=== PATIENT | male | born 1975 | race Caucasian/White ===

== ENCOUNTER 2017-03-09 08:35 | Inpatient (IN) ==
--- NOTE | 2017-03-09 08:52 | EKG Report ---
Stationary ECG Study [facility] ER Test Date: 03/09/2017 8:46:18 AM Pat Name: ANDERSON BRICENO Department: Room: Gender: M [employer]: : 1975 Requested by: Jason Meehan Order Number: [id number] Reading MD: JAVIER ANTON Intervals [place] Rate: 98 P: 48 W[place]: 154 QRS: 44 QRSD: 101 T: 79 QT: 304 QTc: 359 Interpretive Statements SINUS RHYTHM NONSPECIFIC T WAVE ABNORMALITY SHORT QT INTERVAL CRITERIA FOR LVH Electronically Signed On 03-11-17 17:38:59 CDT by JAVIER ANTON [email or web address]
[2017-03-09] MEDS ORDERED: SODIUM CHLORIDE 0.9% 1,000 ML IV STA (10:45)
[2017-03-09] MEDS ORDERED: MORPHINE 2 MG/1 ML SYRINGE IV STA (10:46)
[2017-03-09] MEDS ORDERED: ONDANSETRON 4 MG/2 ML VIAL IV STA ×2 (10:46→12:39)
--- NOTE | 2017-03-09 10:53 | Emergency Department Note ---
Arrival - Arrival Chief Complaint: Abdominal / Flank Pain Stated Complaint: chest pain,SOB,pancreatitis ED Nursing Triage Note: C/o sharp, epigastric pain radiating to chest and back and N/V-onset 0100 this morning. Patient states he has a hx of pancreatitis and symptoms feel similar. Reports that he is a recovering alcoholic, but started drinking again this week. Mode of Arrival: Ambulatory Limitations: No Limitations Source: Patient, Significant other, Old Records Reviewed, RN Notes Reviewed Time Seen by Provider: 03/09/17 10:22 - History of Present Illness HPI Narrative: 42-year-old white male received to ED with chief complaint of epigastric pain since 1 AM this morning, pain radiates to chest and back. Also complaining of some shortness of breath due to pain. Has a history of pancreatitis, last episode was June 2016. Patient recently started drinking for about a 3 day episode. He is a recovering alcoholic. He says this pain is similar to previous pancreatitis, except that it is worse. No PCP. Chronic medical problems as listed in chart. Patient does have a history of hypertension which is currently untreated. Blood pressure today is 186/114. O2 sat is 98% currently on room air. Allergies/Adverse Reactions: Allergies Allergy/AdvReac Type Severity Reaction Status Date / Time No Known Allergies Allergy Verified 03/21/16 21:38 Home Medications: Home Medications Medication Instructions Recorded Confirmed Type Ascorbic Acid [Vitamin C] 1,000 mg PO DAILY 03/09/17 03/09/17 History Cyanocobalamin (Vitamin B-12) 2,500 mcg PO DAILY 03/09/17 03/09/17 History [Vitamin B12] Glucosamine 500 mg PO DAILY 03/09/17 03/09/17 History Naproxen [Naprosyn] 250 mg PO DAILY 03/09/17 03/09/17 History Review of System - Review of System 12 point system: reviewed and no additional remarkable complaints except as stated - Review of System Constitutional: Absent: fever Respiratory: Present: as per HPI Gastrointestinal: Present: abdominal pain, nausea, vomiting. Absent: hematemesis, melena, hematochezia Medical,Surgical,& Family Hx - Medical History Cardio: History of: Hypertension No history of: CAD Psychological: History of: Anxiety Disorders, Depression HEENT: History of: Eye Problem (wears glasses) Endocrine: No history of: Diabetes Mellitus (NIDDM), Dyslipidemia, Thyroid Disorder Rheumatology: History of;: Gout Gastrointestinal: History of: GERD, Pancreatitis, GI Problems (peptic ulcer disease) Hematology: No history of: Blood Transfusion Reaction - Surgical History HEENT Surgeries: Surgical HX of: Tonsilectomy & Adenoidectomy Patient denies: Eye Surgery Abdominal Surgeries: Surgical HX of: Abdominal Surgery (removal of pancreatic cyst 10 years ago), Hernia Repair (from abdominal incision) Reproductive Surgeries: Patient denies;: Genitourinary Surgery - Family History Family History: Reports;: Family Heart Disease (father, greater than age 55), Family Hypertension Denies;: Family Stroke - Social History Smoking Status: Current every day smoker Frequency of Alcohol Use: Occasionally Type of Drug Use: None Exam Physical Examination: - General General appearance: alert, in no apparent distress - Head Head exam: Present: atraumatic, normocephalic, normal inspection - Eye Eye exam: Present: normal appearance, PERRL, EOMI - Neck Neck exam: Present: normal inspection, full ROM - Chest Chest inspection: Present: normal inspection, symmetric chest wall rise - Respiratory Respiratory exam: Present: normal lung sounds bilaterally - Cardiovascular Cardiovascular exam: Present: regular rate, normal rhythm, normal heart sounds - Abdominal Exam Abdominal exam: Present: soft, tenderness (bilateral upper quadrant, moderate to severe), guarding present. Normal bowel sounds. Absent: distention, organomegaly, trauma, psoas sign, heel tap sign, Guevara's sign, mass - Rectal Exam Rectal exam: Present: deferred - Extremities Exam Extremities exam: Present: normal inspection, full ROM. Absent: pedal edema, joint swelling, calf tenderness - Back Exam Back exam: Present: normal inspection, full ROM - Neurological Exam Neurological exam: Present: alert, oriented X3, normal gait - Psychiatric Psychiatric exam: Present: normal affect, normal mood - Skin Skin exam: Present: warm, dry, intact Vital Signs: Vital Signs Temperature 99 F 03/09/17 23:46 Pulse Rate 108 H 03/09/17 23:46 Respiratory Rate 21 03/09/17 23:46 Blood Pressure 166/105 03/09/17 23:46 O2 Sat by Pulse Oximetry 100 03/09/17 23:46 Course - Reevaluation(s) Time: 12:15 (continues to c/o pain and nausea, will medicate again) - Consultations Time: 12:40 (notified Barrie in Hospitalist Service of pt presence and status.) Results - Labs CBC & BMP: 03/09/17 10:20 03/09/17 10:25 Lab Results: I have reviewed the patients labs Labs: Laboratory Tests 03/09/17 03/09/17 10:25 11:27 Urine Color Yellow Urine Appearance Clear Urine pH 7.0 Ur Specific [place] 1.028 Urine Protein 100 Urine Glucose (UA) >=500 Urine Ketones 80 Urine Blood Negative Urine Nitrate Negative Urine Bilirubin Negative Urine Urobilinogen 4.0 H Urine Leukocytes Negative Urine RBC 5 Urine WBC 1 Ur Squamous Epith Cells Occasional Urine Mucus Occasional Ur Culture Indicated? Not indicated Urine Opiates Screen Negative Ur Barbiturates Screen Negative Ur Phencyclidine Scrn Negative U Amphetamine/Methamph Negative U Benzodiazepines Scrn Positive H U Cocaine Metab Screen Negative U Cannabinoids Screen Negative Laboratory Tests 03/09/17 10:25 Total Bilirubin 1.40 H AST 80 H ALT 72 H Laboratory Tests 03/09/17 10:25 Amylase 93 Lipase 976.0 H Disposition Clinical Impression: Pancreatitis Disposition: Still a Patient Condition: Stable
[2017-03-09] MEDS ORDERED: ONDANSETRON 4 MG/2 ML VIAL ONE ×2 (11:00→12:35)
[2017-03-09] MEDS ORDERED: MORPHINE 2 MG/1 ML SYRINGE ONE (11:00)
[2017-03-09 11:12] LABS: Apearance,Urine CLEAR (Clear); Bilirubin,Urine Negative (Negative); Blood, Urine Negative (Negative); Glucose,Urine (UA) >=500 mg/dL (Negative); Ketones,Urine 80 mg/dL (Negative); Mucus,Urine Occasional /LPF (Occasional); Nitrite,Urine Negative (Negative); Protein,Urine 100 MG/DL; RBC,Urine 5 /HPF (0-4); Squamous Epithelial Cell,Urine Occasional /HPF (0-10); Urine Color Yellow (Yellow); Urine Specific Gravity 1.028 (1.001-1.035); WBC,Urine 1 /HPF (0-6)
[2017-03-09] MEDS ORDERED: PROMETHAZINE 25 MG/1 ML VIAL IM STA (11:30)
[2017-03-09] MEDS ORDERED: PROMETHAZINE 25 MG/1 ML VIAL ONE (11:32)
[2017-03-09 11:37] LABS: Barbiturates Screen,Urine Negative (Negative); Benzodiazepines Screen,Urine Positive (Negative); Cannabinoid Screen,Urine Negative (Negative); Opiate Screen,Urine Negative (Negative); Phencyclidine Screen,Urine Negative (Negative)
[2017-03-09 11:38] LABS: Albumin 4.3 G/DL (3.4-5.0); Bilirubin,Total 1.4 MG/DL (0.2-1.0); Calcium 9.3 MG/DL (8.5-10.1); Osmolality,Calculated 261.2 MOS/KG (273-304); Potassium 4.3 MMOL/L (3.5-5.1); Total Protein 8.5 G/DL (6.4-8.3)
[2017-03-09 11:57] LABS: Basophils % 0.2 % (0.0-0.8); Eosinophils % 0.2 % (0.00-10.9); Hematocrit 41.5 VOL% (42.0-52.0); Hemoglobin 15.1 GM/DL (14.0-18.0); Immature Granulocytes % 0.7 %; Immature Granulocytes Absolute 0.12 #; Lymphocytes % 5.8 % (21.2-54.2); Mean Corpuscular HGB Conc 36.4 GM/DL (32-36); Mean Corpuscular Hemoglobin 33 PG (27-34); Mean Corpuscular Volume 91.6 FL (87-102); Mean Platelet Volume 10.1 FL (9.6-12.0); Monocytes # 1.3 10*3/uL (0.11-0.8); Monocytes % 7.6 % (1.7-12.7); Neutrophils # 14.1 10*3/uL (1.4-7.4); Neutrophils % 85.5 % (38.7-73.9); Platelet Count 152 T/CUMM (130-400); Red Blood Count 4.53 MC/CUMM (3.8-5.5); Red Cell Distribution Width 12.2 % (9.3-17.3); White Blood Count 16.5 T/CUMM (4-12)
[2017-03-09] MEDS ORDERED: HYDROmorphone 2 MG/1 ML VIAL ONE (12:34)
[2017-03-09] MEDS ORDERED: HYDROmorphone 2 MG/1 ML VIAL IV STA (12:39)
[2017-03-09] MEDS ORDERED: DOCUSATE SODIUM 100 MG CAPSULE PO PRN (14:41)
[2017-03-09] MEDS ORDERED: LACTULOSE 20 GM/30 ML UDCUP PO PRN (14:41)
[2017-03-09] MEDS ORDERED: MORPHINE 2 MG/1 ML SYRINGE IV PRN (14:41)
--- NOTE | 2017-03-09 14:44 | Hospitalist History & Physical ---
<Barrie Pfeiffer - Last Filed: 03/09/17 14:38> Assessment and Plan - Time spent with patient Time spent with patient: Greater than 30 minutes (1) Acute pancreatitis Status: Acute Assessment and plan: WBC 16.5, Glu 269, Lipase 976. Patient is NPO. IVF initiated. Will obtain abdominal CT. Monitor pancreatic enzymes. Watch for alcohol withdrawal symptoms in this patient. Current Visit: No (2) Diabetes Status: Acute Assessment and plan: Uncontrolled. Initial SSI protocol. Accu-Cheks ACHS. Current Visit: No (3) Hypertension Status: Chronic Current Visit: No History of Present Illness Chief complaint: Generalized abdominal pain History of present illness: Mr. Baxter is a 42 year old male with a past medical history significant for hypertension, diabetes mellitus, pancreatitis who presents to the ED with complaints of generalized abdominal pain since 1AM this morning. The patient states that he has been under stress lately and relapsed with his alcohol. He states that he drank about 10 beers each night on Sunday, Sunday and Sunday. This morning he reports that it "hurts to breathe" and he has had N/ V. He has previously been admitted with similar symptoms and was treated for alcoholic panceatitis. The patient describes today's symptoms as the same, only worse. On exam, he is diaphoretic and complains of LUQ and epigastric pain which he rates as a 8/10. He reports the pain has gotten better since receiving dilaudid in the ED. He denies headache, blurry vision, chest pain, palpitations , numbness or tingling. Preliminary labs show WBC 16.5, Na 127, Glu 269, AST 80 , ALT 72, Amylase 93, Lipase 976. He will be admitted to the hospital medicine service for further evaluation and treatment. The patient is a full code. This case has been discussed with Dr. Riley. Home Medications Medication Instructions Recorded Confirmed Type Ascorbic Acid [Vitamin C] 1,000 mg PO DAILY 03/09/17 03/09/17 History Cyanocobalamin (Vitamin B-12) 2,500 mcg PO DAILY 03/09/17 03/09/17 History [Vitamin B12] Glucosamine 500 mg PO DAILY 03/09/17 03/09/17 History Naproxen [Naprosyn] 250 mg PO DAILY 03/09/17 03/09/17 History Allergies Allergy/AdvReac Type Severity Reaction Status Date / Time No Known Allergies Allergy Verified 03/21/16 21:38 Medical,Surgical,& Family Hx - Medical History Cardio: History of: Hypertension No history of: CAD Psychological: History of: Anxiety Disorders, Depression HEENT: History of: Eye Problem (wears glasses) Endocrine: No history of: Diabetes Mellitus (NIDDM), Dyslipidemia, Thyroid Disorder Rheumatology: History of;: Gout Gastrointestinal: History of: GERD, Pancreatitis, GI Problems (peptic ulcer disease) Hematology: No history of: Blood Transfusion Reaction - Surgical History HEENT Surgeries: Surgical HX of: Tonsilectomy & Adenoidectomy Patient denies: Eye Surgery Abdominal Surgeries: Surgical HX of: Abdominal Surgery (removal of pancreatic cyst 10 years ago), Hernia Repair (from abdominal incision) Reproductive Surgeries: Patient denies;: Genitourinary Surgery - Family History Family History: Reports;: Family Heart Disease (father, greater than age 55), Family Hypertension Denies;: Family Stroke - Social History Smoking Status: Current every day smoker Frequency of Alcohol Use: Occasionally Type of Drug Use: None Marital Status: Single Lives With:: Alone Functional capacity: independent ambulation - Constitutional Constitutional: Absent: fever(s), headache(s), weakness - EENT Eyes: Absent: blurry vision, loss of vision Ears: Absent: decreased hearing, ear pain Nose, mouth and throat: Absent: epistaxis, headache(s), neck mass, sore throat - Cardiovascular Cardiovascular: Present: dyspnea. Absent: chest pain at rest, edema, radiating jaw, neck or arm pain, palpitations - Respiratory Respiratory: Present: dyspnea. Absent: cough, dyspnea on exertion, wheezing - Gastrointestinal Gastrointestinal: Present: abdominal pain, nausea, vomiting. Absent: constipation, diarrhea - Genitourinary Genitourinary: Absent: difficulty urinating, dysuria - Musculoskeletal Musculoskeletal: Present: back pain. Absent: arthralgias - Neurological Neurological: Absent: abnormal gait, abnormal speech, dizziness, numbness, syncope - Psychiatric Psychiatric: Absent: anxiety, depression - Endocrine Endocrine: Absent: cold intolerance, heat intolerance - Hematologic/Lymphatic Hematologic/Lymphatic: Absent: easy bleeding, easy bruising Exam - Constitutional Exam: General appearance: normal weight, no acute distress - Head Head exam: Present: normocephalic, atraumatic - Eye Eye exam: Present: EOMI. Absent: conjunctival injection, nystagmus Pupils: Present: LAURA, normal accommodation - ENT ENT exam: Present: normal exam, normal external ear exam - Neck Neck exam: Present: normal inspection. Absent: lymphadenopathy, tenderness, thyromegaly - Respiratory Respiratory exam: Present: clear to auscultation bilaterally. Absent: rales, rhonchi, wheezes - Cardiovascular Cardiovascular exam: Present: regular rate and rhythm. Absent: carotid bruit, gallop, rubs - GI/Abdominal GI/Abdominal exam: Present: normal bowel sounds, tenderness to palpation in LUQ and epigastric region. Absent: ascites, distended, mass - Extremities Exam Extremities exam: Present: normal inspection, normal capillary refill. Absent: edema - Back Exam Back exam: Absent: CVA tenderness (L), CVA tenderness (R) - Neurological Exam Neurological exam: Present: alert, oriented X3 - Psychiatric Psychiatric exam: Present: normal affect, normal mood - Skin Skin exam: Present: normal color, warm, dry Results - Labs CBC & BMP: 03/09/17 10:20 03/09/17 10:25 Lab Results: I have reviewed the past 24 hour labs <Tamanna Riley - Last Filed: 03/09/17 16:19> History of Present Illness History of present illness: Patient was seen, interviewed, and personally evaluated by me. In brief, Mr. Baxter is a 42 year old male with a history of diabetes mellitus type 2 presenting with abd pain, nausea, and vomiting. Found to have acute pancreatitis, leukocytosis, hyponatremia/chloremia and hyperglycemia. On exam, Awake, alert in moderate distress due to pain. HEENT: dry mucus membranes. Neck supple without JVD or LAD. CV: tachycardia, RR normal S1/S2 without M, R,G. Lungs: CTAB, nonlabored. ABD; distended, soft diffusely TTP with voluntary guarding. Hypoactive bowel sounds. Difficult to assess for HSM or masses given pain and incooperativeness with exam. EXT: Warm, well perfused. No C/C/E. Labs/ Investigative studies reviewed. A/P: Acute pancreatitis, leukocytosis, hyponatremia/chloremia and hyperglycemia in a patient with DM2, cholelithiasis and chronic alcohol use. - Will check UA. Check FLP. RUQ U/S. May need CCY pending Change IVF to banana bag. Add Ativan prn agitation in case of withdrawals. Change Morphine to Dilaudid since he stated it was not controlling his pain. PPI IV. NPO for now until pain better controlled. Antiemetics as needed. Recheck labs in am. SCDs for DVT prophylaxis. Exam - Constitutional Vitals: Period Temp Pulse Resp BP Sys/Ingram Pulse Ox Last 24 Hr 98.2 F 98 18 192/119 97 Results - Labs CBC & BMP: 03/09/17 10:20 03/09/17 10:25
[2017-03-09] MEDS ORDERED: GLUCAGON 1 MG VIAL IM PRN (14:52)
[2017-03-09] MEDS ORDERED: DEXTROSE 50% 25 GM/50 ML VIAL IV PRN (14:52)
[2017-03-09] MEDS ORDERED: SODIUM CHLORIDE 0.9% 1,000 ML IV SCH (15:00)
--- NOTE | 2017-03-09 15:47 | CT Report ---
CT abdomen w con Indication: Abdominal pain. CT ABDOMEN WITH CONTRAST DLP: 1845 mGy*cm. One or more of the following dose reduction techniques was used: Automated exposure control, adjustment of the mA and/or kV according the patient size, or use of iterative reconstruction techniques. Comparison: 06/02/2016 Technique: Axial CT images of the abdomen were obtained with IV contrast. Oral contrast was not used. Omnipaque 350, 100 cc. Findings: Imaging carried through the iliac crests as study was ordered "CT abdomen with contrast", not including the pelvis. Severe fatty infiltration of liver is present, similar to the previous exam. Main portal vein is normal in diameter. Spleen is normal in size. Pancreas is abnormal with a vague 30 x 13 mm region of hypodensity in the tail the pancreas and peripancreatic fat stranding. Both of these features are similar to the previous examination. Head of the pancreas is atrophied somewhat. Calcified gallstones in the gallbladder lumen are present. Adrenal glands and kidneys remain unremarkable. Aorta is normal in caliber. Bibasilar scarring or atelectasis noted. Heart size is normal. Impression: 1. Nonspecific inflammation and hypodensity involving the tail of pancreas likely related to chronic pancreatitis. No pseudocyst development external to the pancreas identified. 2. Severe fatty infiltration of the liver, similar to 06/02/2016. 3. Calcified cholelithiasis. PROCEDURE INTERPRETED AT [facility] DEPARTMENT OF RADIOLOGY Final Report Signed by: Shravan Aguirre M.D.
[2017-03-09] MEDS ORDERED: LORazepam 2 MG/1 ML VIAL IV PRN (16:01)
[2017-03-09] MEDS ORDERED: HYDROmorphone 2 MG/1 ML VIAL IM PRN (16:20)
[2017-03-09] MEDS: INSULIN LISPRO 100 UNIT/ML SUBCUT SCH ×2 (16:49→20:30)
[2017-03-09 16:57] LABS: Magnesium 1.6 MG/DL (1.8-2.4); Phosphorous 2.3 MG/DL (2.5-4.9)
[2017-03-09 17:05] LABS: Risk Ratio 15.08
[2017-03-09 17:09] LABS: Apearance,Urine CLEAR (Clear); Bilirubin,Urine Negative (Negative); Blood, Urine Small mg/dL (Negative); Glucose,Urine (UA) 150 mg/dL (Negative); Ketones,Urine 5 mg/dL (Negative); Nitrite,Urine Negative (Negative); Protein,Urine Negative; RBC,Urine <1 /HPF (0-4); Urine Color Yellow (Yellow); Urine Specific Gravity > 1.060 (1.001-1.035); Urine Urobilinogen < 2.0 EU/DL (0.2-1.0); WBC,Urine <1 /HPF (0-6)
[2017-03-09] MEDS: HYDROmorphone 2 MG/1 ML VIAL IV PRN ×2 (17:09→20:47)
[2017-03-09] MEDS: ONDANSETRON 4 MG/2 ML VIAL IV PRN (17:11)
[2017-03-09] MEDS: THIAMINE INJ 100 MG, FOLIC ACID INJ 1 MG, MAGNESIUM SULF INJ 2 GM, MULTIVITAMIN INJ 10 ... IV SCH (17:16)
[2017-03-09] MEDS: LABETALOL 20 MG/4 ML SYRINGE IV PRN (18:21)
[2017-03-10] MEDS: HYDROmorphone 2 MG/1 ML VIAL IV PRN ×6 (00:49→20:46)
[2017-03-10] MEDS: ONDANSETRON 4 MG/2 ML VIAL IV PRN ×3 (04:41→16:50)
[2017-03-10 06:23] LABS: Basophils % 0.3 % (0.0-0.8); Eosinophils # 0.1 10*3/uL (0.0-0.87); Eosinophils % 1.1 % (0.00-10.9); Hematocrit 40.2 VOL% (42.0-52.0); Hemoglobin 13.9 GM/DL (14.0-18.0); Immature Granulocytes % 1.1 %; Immature Granulocytes Absolute 0.13 #; Lymphocytes # 1.2 10*3/uL (1.4-4.0); Mean Corpuscular HGB Conc 34.6 GM/DL (32-36); Mean Corpuscular Hemoglobin 33 PG (27-34); Mean Corpuscular Volume 95.7 FL (87-102); Mean Platelet Volume 10.3 FL (9.6-12.0); Monocytes % 8.2 % (1.7-12.7); Neutrophils # 9.8 10*3/uL (1.4-7.4); Neutrophils % 79.3 % (38.7-73.9); Platelet Count 138 T/CUMM (130-400); Red Cell Distribution Width 12.4 % (9.3-17.3); White Blood Count 12.4 T/CUMM (4-12)
[2017-03-10 07:12] LABS: Albumin 3.4 G/DL (3.4-5.0); Bilirubin,Total 1.7 MG/DL (0.2-1.0); Calcium 8.3 MG/DL (8.5-10.1); Osmolality,Calculated 274.2 MOS/KG (273-304); Potassium 3.8 MMOL/L (3.5-5.1); Total Protein 6.7 G/DL (6.4-8.3)
[2017-03-10 07:53] LABS: Hepatitis A Ab IgM Quant 0.14 Index; Hepatitis A Ab IgM Result Negative (Negative); Hepatitis B Core IgM Quant 0.16 Index; Hepatitis B Core IgM Result Negative (Negative); Hepatitis B Surface Ag Quant 0.13 Index; Hepatitis B Surface Ag Result Negative (Negative); Hepatitis C Virus Ab Quant 0.12 Index; Hepatitis C Virus Ab Result Negative (Negative)
[2017-03-10] MEDS: INSULIN LISPRO 100 UNIT/ML SUBCUT SCH ×4 (08:28→21:19)
[2017-03-10] MEDS: PANTOPRAZOLE 40 MG VIAL IV SCH (08:30)
[2017-03-10] MEDS ORDERED: PANTOPRAZOLE 40 MG TABLET PO SCH (09:00)
--- NOTE | 2017-03-10 10:01 | Ultrasound Report ---
US right upper quadrant Indication: Pancreatitis, gallstones, although abdominal pain with elevated liver function studies. Comparison: 02/11/2016 ultrasound. Technique: Multiple longitudinal and transverse real-time sonographic images of the right upper quadrant of the abdomen are obtained. Findings: The liver is enlarged measuring 19.5 cm and demonstrates increased echogenicity without focal abnormality. No obvious intrahepatic biliary ductal dilatation is evident. The common bile duct measures 0.55 cm. There are probable layering mobile and nonmobile stones within the gallbladder neck. The gallbladder lumen does not appear enlarged. There is no wall thickening or pericholecystic fluid. Pancreas is poorly evaluated. Right kidney measures up to 11 cm cranial caudal. No definite hydronephrosis or perinephric collection is visualized. Detailed assessment of the renal parenchyma is limited due to poor visualization. Right kidney is also not well visualized due to patient body habitus and IMPRESSION: Cholelithiasis with no definite sonographic evidence of acute cholecystitis. However, the study is limited due to patient body habitus. Findings compatible with fatty attrition of the hepatic parenchyma. Ultrasound images were captured and stored. PROCEDURE INTERPRETED AT [facility] DEPARTMENT OF RADIOLOGY Final Report Signed by: Fredrick Oconnell
--- NOTE | 2017-03-10 13:44 | Hospitalist Progress Note ---
Hospitalist: Subjective Interval history: Pt states his abd pain comes back after 3 hours of received IV Dilaudid. No fever. No cp or SOB. Feels like he is ready for clear diet. Good UOP. No BM Exam - Constitutional Vitals: Period Temp Pulse Resp BP Sys/Ingram Pulse Ox Last 24 Hr 97.7 F-99.5 F 98-109 16-22 135-192/90-119 94-100 Exam: GEN: Awake, alert , comfortable in NAD HEENT: dry mucus membranes. Neck supple without JVD or LAD. CV: tachycardia, RR normal S1/S2 without M, R,G. Lungs: CTAB, nonlabored. ABD; distended, soft epigastric TTP without guarding or rebound. Hypoactive bowel sounds. EXT: Warm, well perfused. No C/C/E. NEURO: nonfocal Results - Labs CBC & BMP: 03/10/17 05:37 03/10/17 05:37 - Impressions A/P: 1. Acute pancreatitis in a patient with chronic alcohol use, cholelithiasis and hypertriglyceridemia 2. Leukocytosis suspect reactive 3. Hyponatremia/chloremia likely due to dehydration- improving 4. DM2/ hyperglycemia (control unknown) 5. Cholelithiasis 6. Hypertriglyceridemia (TG 1100) 7. Chronic alcohol use. 8. Obesity: BMI 39.9 - UA with no evidence of infection - RUQ U/S showed gallstones but no evidence of cholecystitis - Cont IVF/ banana bag - Ativan prn agitation in case of withdrawals. - IV pain control but change to q3h prn. Clear diet and advance as tolerated - PPI IV. - Antiemetics as needed. Recheck labs in am. - Awaiting HgbA1c - Add Niacin or gemfibrozil once tolerating po well. - SCDs for DVT prophylaxis. I will be away several days. One of my associates will follow in my absence.
[2017-03-10] MEDS ORDERED: HYDROmorphone 2 MG/1 ML VIAL SUBCUT PRN (16:00)
[2017-03-10] MEDS: SUCRALFATE 1 GM/10 ML UDCUP PO SCH ×2 (16:53→20:48)
[2017-03-10] MEDS: THIAMINE INJ 100 MG, FOLIC ACID INJ 1 MG, MAGNESIUM SULF INJ 2 GM, MULTIVITAMIN INJ 10 ... IV SCH (17:51)
[2017-03-11] MEDS: HYDROmorphone 2 MG/1 ML VIAL IV PRN ×8 (00:07→21:57)
[2017-03-11] MEDS: SUCRALFATE 1 GM/10 ML UDCUP PO SCH ×4 (08:32→21:56)
[2017-03-11] MEDS: INSULIN LISPRO 100 UNIT/ML SUBCUT SCH ×4 (08:32→21:56)
[2017-03-11] MEDS: PANTOPRAZOLE 40 MG VIAL IV SCH (08:33)
--- NOTE | 2017-03-11 11:49 | Hospitalist Progress Note ---
Assessment and Plan - Time spent with patient Time spent with patient: Less than 30 minutes (1) Pancreatitis Status: Acute Assessment and plan: Patient was admitted with acute pancreatitis. He is symptomatically and clinically improving slowly but has persistent back pain. We will slowly advance his diet today, follow-up laboratory studies in the a.m. and reassess at that time. Current Visit: Yes (2) Diabetes Status: Acute Assessment and plan: Continuing current regimen with Accu-Cheks and sliding scale insulin. Current Visit: No (3) Hypertriglyceridemia Status: Chronic Assessment and plan: We will follow-up levels in the a.m. Will need dietary instruction and may require pharmacologic therapy at discharge. Current Visit: No (4) Hypertension Status: Chronic Assessment and plan: Currently stable. Continue to follow Current Visit: No (5) Alcohol abuse Status: Chronic Assessment and plan: He states that he had stopped drinking however relapse. I have encouraged alcohol abstinence. Current Visit: Yes Hospitalist: Subjective Interval history: Patient has tolerated clear liquids without any difficulty. He states that the discomfort he has had in his epigastric region has improved however he is concerned that he has continued pain in his mid to low back that is persistent and requires IV pain medications. These help for several hours however it does return. He denies any fever, melena, hematochezia, hematemesis, nausea or vomiting. Exam - Constitutional Vitals: Period Temp Pulse Resp BP Sys/Ingram Pulse Ox Last 24 Hr 97.0 F-99.1 F 91-107 16-20 135-159/87-99 93-94 General appearance: no acute distress - Head Head exam: Present: normocephalic, atraumatic - Eye Eye exam: Present: EOMI. Absent: scleral icterus Pupils: Present: LAURA - ENT ENT exam: Present: normal exam - Neck Neck exam: Absent: lymphadenopathy, meningismus, tenderness, thyromegaly - Respiratory Respiratory exam: Present: clear to auscultation bilaterally - Cardiovascular Cardiovascular exam: Present: regular rate and rhythm. Absent: tachycardia - GI/Abdominal GI/Abdominal exam: Present: normal bowel sounds, tenderness (Mild tenderness in the epigastrium without rebound), soft - Extremities Exam Extremities exam: Absent: calf tenderness, edema - Back Exam Back exam: Present: normal inspection. Absent: CVA tenderness (L), CVA tenderness (R) - Neurological Exam Neurological exam: Present: alert, oriented X3, CN II-XII intact. Absent: motor sensory deficit - Psychiatric Psychiatric exam: Present: normal affect, normal mood. Absent: agitated, anxious - Skin Skin exam: Present: warm, dry. Absent: rash Results - Labs CBC & BMP: 03/10/17 05:37 03/10/17 05:37 Lab Results: I have reviewed the past 24 hour labs
[2017-03-11] MEDS: THIAMINE INJ 100 MG, FOLIC ACID INJ 1 MG, MAGNESIUM SULF INJ 2 GM, MULTIVITAMIN INJ 10 ... IV SCH (18:09)
[2017-03-12] MEDS: HYDROmorphone 2 MG/1 ML VIAL IV PRN ×6 (01:02→20:55)
[2017-03-12] MEDS: LABETALOL 20 MG/4 ML SYRINGE IV PRN ×2 (05:54→15:49)
[2017-03-12 06:15] LABS: Basophils % 0.3 % (0.0-0.8); Eosinophils # 0.2 10*3/uL (0.0-0.87); Eosinophils % 2.9 % (0.00-10.9); Hematocrit 36.5 VOL% (42.0-52.0); Hemoglobin 12.3 GM/DL (14.0-18.0); Immature Granulocytes % 1.4 %; Immature Granulocytes Absolute 0.09 #; Lymphocytes # 1.3 10*3/uL (1.4-4.0); Lymphocytes % 20.4 % (21.2-54.2); Mean Corpuscular HGB Conc 33.7 GM/DL (32-36); Mean Corpuscular Hemoglobin 33 PG (27-34); Mean Corpuscular Volume 97.6 FL (87-102); Mean Platelet Volume 10.3 FL (9.6-12.0); Monocytes # 0.6 10*3/uL (0.11-0.8); Monocytes % 9.9 % (1.7-12.7); Neutrophils # 4.1 10*3/uL (1.4-7.4); Neutrophils % 65.1 % (38.7-73.9); Platelet Count 133 T/CUMM (130-400); Red Blood Count 3.74 MC/CUMM (3.8-5.5); Red Cell Distribution Width 12.2 % (9.3-17.3); White Blood Count 6.3 T/CUMM (4-12)
[2017-03-12 06:45] LABS: Bilirubin,Total 0.7 MG/DL (0.2-1.0); Calcium 7.6 MG/DL (8.5-10.1); Osmolality,Calculated 275.8 MOS/KG (273-304); Potassium 3.8 MMOL/L (3.5-5.1); Risk Ratio 11.29; Total Protein 6.3 G/DL (6.4-8.3); VLDL CHOLESTEROL 74.4 MG/DL
[2017-03-12] MEDS: SUCRALFATE 1 GM/10 ML UDCUP PO SCH ×4 (10:15→20:55)
[2017-03-12] MEDS: INSULIN LISPRO 100 UNIT/ML SUBCUT SCH ×4 (10:16→20:54)
[2017-03-12] MEDS: PANTOPRAZOLE 40 MG VIAL IV SCH (10:18)
--- NOTE | 2017-03-12 15:53 | Hospitalist Progress Note ---
Assessment and Plan - Time spent with patient Time spent with patient: Less than 30 minutes (1) Pancreatitis Status: Acute Assessment and plan: Tolerating po intake without difficulty. Having bowel movements without problems as well. Pt. states that pain still is not controlled. Will start breakthrough oral meds prn in an effort to begin to transition meds. I encouraged the patient to slow down on the oral intake. Continue Banana Bag and Antiemetics prn. Current Visit: Yes (2) Diabetes Status: Acute Assessment and plan: Stable. Continue with current regimen. Current Visit: Yes (3) Hypertriglyceridemia Status: Chronic Assessment and plan: TG have improved over the course of this admission. Will go ahead and initiate Niacin. Current Visit: Yes (4) Hypertension Status: Chronic Current Visit: No Hospitalist: Subjective Interval history: Patient states that his pain is improved but IV Dilaudid does not last for the entire 3 hour interval. He continues to have back pain that is more consistent with fright flank pain. TTP on the right. UA on admission is unremarkable. This is likely just slow resolution of chronic pancreatitis. His diet has been advanced and he states that he is tolerating that well. He does not wish hold off with that. Otherwise, his labs are much improved. Will continue to monitor. Exam - Constitutional Vitals: Period Temp Pulse Resp BP Sys/Ingram Pulse Ox Last 24 Hr 96.9 F-98.2 F 87-102 16-20 153-192/89-115 94-98 Exam: General: WNWD NAD Lungs: CTA bilaterally CVS: Regular without murmur Abd: Protuberant with decreased bowel sounds. NTTP while auscultating. Back: No lesions. TTP (even the lightest touch) over the left CVA. Ext: No edema. Results - Labs CBC & BMP: 03/12/17 05:54 03/12/17 05:54
[2017-03-12] MEDS: THIAMINE INJ 100 MG, FOLIC ACID INJ 1 MG, MAGNESIUM SULF INJ 2 GM, MULTIVITAMIN INJ 10 ... IV SCH (19:00)
[2017-03-12] MEDS: NIACIN 500 MG TABLET PO SCH (20:58)
[2017-03-13] MEDS: HYDROmorphone 2 MG/1 ML VIAL IV PRN ×5 (03:18→21:48)
--- NOTE | 2017-03-13 08:43 | Hospitalist Progress Note ---
Assessment and Plan (1) Pancreatitis Status: Acute Assessment and plan: Patient has had multiple recurrent episodes associated with elevated triglyceride levels on several occasions. On this occasion ultrasound images been performed showing gallstones. Current Visit: Yes (2) Depression Status: Chronic Current Visit: No Qualifiers: Depression Type: reactive depression Qualified Code(s): F32.9 - Major depressive disorder, single episode, unspecified Hospitalist: Subjective Interval history: 42-year-old male with history of recurrent pancreatitis admitted with increasing abdominal pain etc. multiple admissions in [address] scan imaging demonstrating inflammatory changes in the pancreas on each determination. However this is the first admission in 2017 for this patient. Patient has been progressed slowly and he is tolerating solid foods without nausea vomiting or diarrhea. He continues to have subjective abdominal pain with gallbladder ultrasound performed on 09 March demonstrating gallstones without inflammatory changes in the gallbladder bed.. He is demonstrating systolic and diastolic hypertension of variable severity throughout the hospital stay thus far for this he is receiving intermittent IV labetalol. Exam - Constitutional Vitals: Period Temp Pulse Resp BP Sys/Ingram Pulse Ox Last 24 Hr 97.3 F-98.5 F 79-111 17-20 148-207/90-119 95-100 General appearance: over weight - Respiratory Respiratory exam: Present: clear to auscultation bilaterally. Absent: rales, rhonchi, wheezes - Cardiovascular Cardiovascular exam: Present: regular rate and rhythm - GI/Abdominal GI/Abdominal exam: Present: normal bowel sounds, tenderness. Absent: ascites, distended - Extremities Exam Extremities exam: Absent: edema - Neurological Exam Neurological exam: Present: alert, oriented X3 Results - Labs CBC & BMP: 03/12/17 05:54 03/12/17 05:54 Specialty Discharge - Follow Up or Referrals
[2017-03-13] MEDS: PANTOPRAZOLE 40 MG VIAL IV SCH (08:51)
[2017-03-13] MEDS: INSULIN LISPRO 100 UNIT/ML SUBCUT SCH ×4 (08:55→21:47)
[2017-03-13] MEDS: SUCRALFATE 1 GM/10 ML UDCUP PO SCH ×4 (08:57→20:47)
--- NOTE | 2017-03-13 15:23 | General Surgery Consult Note ---
Assessment and Plan (1) Pancreatitis Status: Acute Assessment and plan: Pancreatitis -etiology likely multifactorial. Patient with hypertriglyceridemia , recent increase in alcohol abuse, and cholelithiasis. At this time, he has had no evidence of acute cholecystitis associated and no evidence of obstruction on imaging. The patient will likely benefit from cholecystectomy once his pancreatitis symptoms have resolved. The patient will require treatment of his hypertriglycerides redeem he has well, hopefully this will be easier to accomplish with his insurance reinstated. Patient was also educated on avoiding alcohol abuse and and the association with pancreatitis. We discussed that the cholecystectomy may or may not impact the severity and/or frequency of his pancreatitis flares, but it would like he would likely benefit. We discussed that his procedure would be more involved with higher risk of complication with his surgical history of pancreatic cyst removal and associated incisional hernia with repair with mesh implant currently in place. We will further discuss specifically the risks and benefits for surgery as his symptoms improve. If the resolution of his pain continues to slowly progress and/or fails to progress, repeat a CT scan may be warranted to rule out abscess formation. We will continue to follow along with you. Current Visit: Yes History of Present Illness Chief complaint: Pancreatitis - cholelithiasis History of present illness: Mr. Baxter is a 42 year old male with past medical history of diabetes mellitus, recurrent pancreatitis status post pancreatic cyst removal 10 years ago followed by hernia repair with mesh 4 years ago, hypertension currently admitted for the fifth time at 15 months for acute pancreatitis. Upon admission , lipase is marginal at 976, leukocytosis noted with did receive 16, bilirubin was 1.4, liver enzymes were marginally elevated otherwise, and triglycerides were 1100. The patient reports he previously stopped drinking alcohol but had resumed drinking alcohol for approximately 1 week prior to the onset of his symptoms. He has been treated for diabetes mellitus in the past which was controlled with diet and his medications were discontinued. He is also been treated for hypertrophic triglyceridemia in the past which he was also off of these medications as he reports they were previously minimally effective and he has had a lapse in his insurance which has actually been recently reinstated. In chart review, he is significantly improved with leukocytosis resolution, lipase decreased to 130, and bilirubin normalized at 0.7, and triglycerides down to 342. Symptomatically, the patient reports rather persistent back pain and left upper quadrant pain. He is concerned as this pink otitis flare is improving at a slower rate than his previous episodes. No nausea, vomiting or diarrhea. No chest pain, shortness of breath, wheeze or cough. He is tolerating p.o. intake at this time and having meatloaf for lunch during my interview. Home Medications Medication Instructions Recorded Confirmed Type Ascorbic Acid [Vitamin C] 1,000 mg PO DAILY 03/09/17 03/09/17 History Cyanocobalamin (Vitamin B-12) 2,500 mcg PO DAILY 03/09/17 03/09/17 History [Vitamin B12] Glucosamine 500 mg PO DAILY 03/09/17 03/09/17 History Naproxen [Naprosyn] 250 mg PO DAILY 03/09/17 03/09/17 History Allergies Allergy/AdvReac Type Severity Reaction Status Date / Time No Known Allergies Allergy Verified 03/21/16 21:38 Medical,Surgical,& Family Hx - Medical History Cardio: History of: Hypertension No history of: CAD Psychological: History of: Anxiety Disorders, Depression, Psychiatric/Substance Abuse Tx (Alcohol) HEENT: History of: Eye Problem (wears glasses) Endocrine: History of: Diabetes Mellitus (NIDDM) No history of: Dyslipidemia, Thyroid Disorder Rheumatology: History of;: Gout Gastrointestinal: History of: GERD, Pancreatitis, GI Problems (peptic ulcer disease) Hematology: No history of: Blood Transfusion Reaction Other: History of: Miscellaneous Medical Problems (hypertriglyceridemia) - Surgical History HEENT Surgeries: Surgical HX of: Tonsilectomy & Adenoidectomy Patient denies: Eye Surgery Abdominal Surgeries: Surgical HX of: Abdominal Surgery (removal of pancreatic cyst 10 years ago), Hernia Repair (from abdominal incision) Reproductive Surgeries: Patient denies;: Genitourinary Surgery - Family History Family History: Reports;: Family Heart Disease (father, greater than age 55), Family Hypertension Denies;: Family Stroke - Social History Smoking Status: Current every day smoker Frequency of Alcohol Use: Occasionally Type of Drug Use: None - Constitutional Constitutional: Absent: anorexia, fatigue, fever(s), weight loss - Cardiovascular Cardiovascular: Absent: chest pain at rest, dyspnea on exertion - Respiratory Respiratory: Absent: cough, wheezing - Gastrointestinal Gastrointestinal: Present: as per HPI. Absent: hematochezia, melena, odynophagia - Musculoskeletal Musculoskeletal: Absent: arthralgias Hematologic/Lymphatic: Absent: easy bleeding, easy bruising Exam - Constitutional Vitals: Period Temp Pulse Resp BP Sys/Ingram Pulse Ox Last 24 Hr 97.3 F-98.5 F 79-111 17-20 148-207/90-119 95-100 General appearance: no acute distress, morbidly obese - Head Head exam: Present: normal inspection, normocephalic - Eye Eye exam: Absent: conjunctival injection, scleral icterus - Respiratory Respiratory exam: Present: clear to auscultation bilaterally - Cardiovascular Cardiovascular exam: Present: RRR - GI/Abdominal GI/Abdominal exam: Present: normal bowel sounds, tenderness (epigastric and LUQ) , soft. Absent: distended, Guevara's sign - Extremities Exam Extremities exam: Absent: calf tenderness, edema - Neurological Exam Neurological exam: Present: alert, oriented X3 - Skin Skin exam: Present: normal color, warm Results - Labs CBC & BMP: 03/12/17 05:54 03/12/17 05:54 Lab Results: I have reviewed the past 24 hour labs (I have reviewed complete chart since admission) - Diagnostic Findings Procedure: CT Abdomen and Pelvis: image reviewed by me, report reviewed by me, Ultrasound: image reviewed by me, report reviewed by me Specialty Discharge - Follow Up or Referrals
[2017-03-13] MEDS: oxyCODONE/ACETAMINOPHEN 5-325 MG TABLET PO PRN ×2 (15:41→23:58)
[2017-03-13] MEDS: LABETALOL 20 MG/4 ML SYRINGE IV PRN (15:42)
[2017-03-13] MEDS: THIAMINE INJ 100 MG, FOLIC ACID INJ 1 MG, MAGNESIUM SULF INJ 2 GM, MULTIVITAMIN INJ 10 ... IV SCH (18:03)
[2017-03-13] MEDS: NIACIN 500 MG TABLET PO SCH (20:47)
[2017-03-14] MEDS: HYDROmorphone 2 MG/1 ML VIAL IV PRN ×4 (02:42→20:12)
[2017-03-14] MEDS: oxyCODONE/ACETAMINOPHEN 5-325 MG TABLET PO PRN ×4 (06:11→23:43)
[2017-03-14] MEDS: LABETALOL 20 MG/4 ML SYRINGE IV PRN (07:10)
--- NOTE | 2017-03-14 08:11 | Hospitalist Progress Note ---
Assessment and Plan (1) Pancreatitis Status: Acute Assessment and plan: Patient has had multiple recurrent episodes associated with elevated triglyceride levels on several occasions. On this occasion ultrasound images been performed showing gallstones. Current Visit: Yes (2) Depression Status: Chronic Current Visit: No Qualifiers: Depression Type: reactive depression Qualified Code(s): F32.9 - Major depressive disorder, single episode, unspecified (3) Diabetes Status: Chronic Assessment and plan: Associated hypertriglyceridemia Current Visit: Yes (4) Hypertension Status: Chronic Current Visit: No Hospitalist: Subjective Interval history: 42-year-old male history of recurrent pancreatitis admitted with increasing abdominal pain. He was admitted several times in [address] scan imaging demonstrating inflammatory changes in the pancreas on each occasion. This is his first admission here for 2017. On this admission the patient's abdominal ultrasound demonstrated gallstones without evidence of inflammatory changes or ductal dilatation. He was consulted to general surgery yesterday who are actively following the patient. He continues gradual improvement in his level of pain he is tolerating oral intake. He continues to have an elevated blood pressure and we will likely need to go ahead and initiate suppressive treatment. Capillary blood glucoses remain elevated. Exam - Constitutional Vitals: Period Temp Pulse Resp BP Sys/Ingram Pulse Ox Last 24 Hr 97.2 F-98.1 F 79-94 18-18 150-198/99-115 95-99 General appearance: over weight - Respiratory Respiratory exam: Present: clear to auscultation bilaterally. Absent: rales, rhonchi, wheezes - Cardiovascular Cardiovascular exam: Present: regular rate and rhythm - GI/Abdominal GI/Abdominal exam: Present: normal bowel sounds. Absent: ascites, distended - Extremities Exam Extremities exam: Absent: edema - Neurological Exam Neurological exam: Present: alert, oriented X3 Results - Labs CBC & BMP: 03/12/17 05:54 03/12/17 05:54 Specialty Discharge - Follow Up or Referrals
[2017-03-14] MEDS: SUCRALFATE 1 GM/10 ML UDCUP PO SCH ×4 (09:06→20:45)
[2017-03-14] MEDS: INSULIN LISPRO 100 UNIT/ML SUBCUT SCH ×4 (09:07→20:45)
[2017-03-14] MEDS: PANTOPRAZOLE 40 MG VIAL IV SCH (09:08)
[2017-03-14] MEDS: LISINOPRIL 10 MG TABLET PO SCH (09:12)
--- NOTE | 2017-03-14 09:37 | General Surgery Progress Note ---
Assessment and Plan (1) Pancreatitis Status: Acute Assessment and plan: This patient has recurrent pancreatitis but is resolving. He does have gallstones and we will go ahead and do a laparoscopic cholecystectomy tomorrow and schedule this. The patient understands the risk of an open procedure given his prior surgery and also the risk of the procedure. In particular, I discussed the risk of bleeding, infection, hernias of the abdominal wall, injury to the intestines or liver, pancreatitis, dropped or retained stones in the abdomen, bile leak, and bile duct injury. The patient's questions have been answered. Current Visit: Yes Subjective Patient reports: Present: no new complaints, feels better, pain is less, afebrile Exam - Constitutional Vitals: Period Temp Pulse Resp BP Sys/Ingram Pulse Ox Last 24 Hr 97.2 F-98.1 F 79-94 18-18 150-198/99-115 95-99 General appearance: no acute distress, over weight - Head Head exam: Present: normal inspection, normocephalic - Eye Eye exam: Present: EOMI Pupils: Present: LAURA - ENT ENT exam: Present: normal exam Mouth exam: Present: normal external inspection, normal voice - Neck Neck exam: Present: normal inspection, trachea midline - Respiratory Respiratory exam: Present: clear to auscultation bilaterally. Absent: accessory muscle use, chest wall tenderness - Cardiovascular Cardiovascular exam: Present: RRR. Absent: systolic murmur, tachycardia - GI/Abdominal GI/Abdominal exam: Present: soft. Absent: Guevara's sign, tenderness, rebound - Extremities Exam Extremities exam: Present: normal inspection, normal capillary refill - Back Exam Back exam: Present: normal inspection - Neurological Exam Neurological exam: Present: alert, oriented X3 Speech: Present: normal - Skin Skin exam: Present: normal color, warm Results - Labs CBC & BMP: 03/12/17 05:54 03/12/17 05:54 Specialty Discharge - Follow Up or Referrals
[2017-03-14] MEDS: INSULIN NPH 100 UNIT/ML SUBCUT SCH (16:37)
[2017-03-14] MEDS: THIAMINE INJ 100 MG, FOLIC ACID INJ 1 MG, MAGNESIUM SULF INJ 2 GM, MULTIVITAMIN INJ 10 ... IV SCH (17:28)
[2017-03-14] MEDS: NIACIN 500 MG TABLET PO SCH (20:45)
[2017-03-14] MEDS: amLODIPine 5 MG TABLET PO SCH (23:38)
[2017-03-15] MEDS ORDERED: TISSUE ADHESIVE 1 EACH APPLICATOR TOP ONE (06:50)
[2017-03-15] MEDS ORDERED: BUPIVACAINE MPF 0.25% /EPI 30 ML VIAL ONE ×2 (06:50→07:17)
[2017-03-15] MEDS ORDERED: LIDOCAINE 100 MG/5 ML SYRINGE ONE (07:00)
[2017-03-15] MEDS ORDERED: SUCCINYLCHOLINE 200 MG/10 ML VIAL ONE (07:00)
[2017-03-15] MEDS ORDERED: LABETALOL 100 MG/20 ML VIAL IV ONE (07:00)
[2017-03-15] MEDS ORDERED: PROPOFOL 200 MG/20 ML VIAL IV ONE (07:00)
[2017-03-15] MEDS ORDERED: NEOSTIGMINE 10 MG/10 ML VIAL ONE (07:00)
[2017-03-15] MEDS ORDERED: ROCURONIUM 100 MG/10 ML VIAL IV ONE (07:00)
[2017-03-15] MEDS ORDERED: GLYCOPYRROLATE 0.4 MG/2 ML VIAL ONE (07:00)
[2017-03-15] MEDS ORDERED: ONDANSETRON 4 MG/2 ML VIAL ONE (07:00)
[2017-03-15] MEDS ORDERED: KETOROLAC 30 MG/1 ML VIAL ONE (07:00)
[2017-03-15] MEDS: INSULIN LISPRO 100 UNIT/ML SUBCUT SCH ×4 (08:22→20:46)
[2017-03-15] MEDS: INSULIN NPH 100 UNIT/ML SUBCUT SCH ×2 (08:22→16:19)
[2017-03-15] MEDS: SUCRALFATE 1 GM/10 ML UDCUP PO SCH ×4 (08:22→20:45)
--- NOTE | 2017-03-15 08:33 | Operative Note ---
Date of procedure: 03/15/17 Pre-op diagnosis: Biliary pancreatitis Post-op diagnosis: other (Biliary pancreatitis with chronic cholecystitis) Procedure: Preoperative diagnosis Biliary pancreatitis Postoperative diagnosis Biliary pancreatitis with chronic cholecystitis Procedures performed Laparoscopic cholecystectomy with intraoperative cholangiogram Findings Acute and chronic cholecystitis was seen. The critical view of safety was obtained prior to placing clips on the cystic duct and cystic artery. A cholangiogram revealed no filling defects in the bile duct and good filling of the intrahepatic radicles. Complications None apparent Specimen Gallbladder Anesthesia GETA Blood loss 5 mL Indications The patient was admitted with recurrent pancreatitis and also has a history of alcohol use and hypertriglyceridemia as well as gallstones. I recommended laparoscopic cholecystectomy once his pancreatitis resolved to remove this as a potential cause of future pancreatitis. The risks, benefits, and alternatives of the operation were discussed with the patient in detail, and the expected outcomes were reviewed. In particular, the risk of bowel injury, liver injury, bile duct leak and bile duct injury, as well as pancreatitis and retained or drop stones were discussed in detail. All the patient's questions were answered. She like to proceed with the operation. Description of procedure The patient was taken to the operating room and transferred to the operating table in the supine position. Pressure points were padded and SCDs were placed to bilateral lower extremities. General endotracheal anesthesia was administered. The abdomen was prepped chlorhexidine and draped sterilely. Preoperative antibiotics were administered, a timeout was performed. The abdomen was entered in a supraumbilical location of the Veress needle. The skin incision was made in the periumbilical paramedian right sided l location with a 11 blade scalpel after local anesthetic was administered to avoid the previous mesh and midline incision. The abdominal wall skin was grasped with a penetrating towel clip. A Veress needle was used to enter the peritoneal cavity confirmed by double click technique. Aspiration was negative. Saline drop test confirmed intraperitoneal location. The abdomen was insufflated to 15 mmHg with an initial insufflation pressure of 8 mmHg. The Veress needle was removed and a 5 mm trocar was placed blindly. The towel clip was removed. Diagnostic laparoscopy was performed. There is no evidence of Veress needle or trocar injury. The patient was placed in reverse Trendelenburg and left side rolled down position. Under direct visualization, and after local anesthetic was administered, an 11 mm midepigastric trocar and 2 right subcostal 5 mm trochars were placed. The gallbladder was grasped at the fundus and infundibulum. The cystic plate peritoneum was dissected into the critical view of safety was obtained. A cholangiogram was performed through the cystic duct autotomy after a clip was placed centrally on the gallbladder infundibulum cystic duct junction. The cholangiogram appeared normal with no filling defects and good visualization of the anatomy. The cholangiogram catheter was removed. The cystic duct and cystic artery were clipped twice initially and once laterally and divided laparoscopically with scissors between clips. Gallbladder was removed from the gallbladder fossa using hook electrocautery. The gallbladder was placed in a Endo Catch retrieval bag through the 11 mm trocar and removed through the trocar with no significant fascial extension of the incision. The gallbladder fossa was suction irrigated until the effluent was clear. The CO2 was released from the abdomen and the trochars were removed. The skin incisions were closed with 4-0 Monocryl subcuticular suture and sterile skin glue. The patient was awakened from anesthesia and transferred to recovery. Postoperative plan Advance diet as tolerated Pain control Anesthesia: BETYA, local Surgeon / Physician: Heri Juarez Estimated blood loss: minimal Specimens: other (gallbladder) Condition: stable Disposition: PACU Results - Labs CBC & BMP: 03/12/17 05:54 03/12/17 05:54 Discharge Plan - Discharge Data Discharge Diet: advance to your usual diet Activity: no lifting Hygiene: may shower Weight Bearing at Discharge: weight bear as tolerated Driving: not until seen by doctor Contact your physician if you experience:: fever over 101, Difficulty voiding, Redness or swelling, Nausea/Vomiting, Shortness of breath, Bleeding, pain uncontrolled by pain medications Wound / Dressing Care Instructions: It is okay to shower. Do not scrub the incision aggressively or submerge it under water. - Discharge Medications No Action Glucosamine 500 mg PO DAILY Naproxen [Naprosyn] 250 mg PO DAILY Cyanocobalamin (Vitamin B-12) [Vitamin B12] 2,500 mcg PO DAILY Ascorbic Acid [Vitamin C] 1,000 mg PO DAILY - Follow Up or Referral Follow Up: Heri Juarez MD [Physician] - 2 Weeks - Forms/Instructions Instructions: Pancreatitis (DC), Abuse of Alcohol (DC)
[2017-03-15] MEDS ORDERED: fentaNYL 100 MCG/2 ML VIAL ONE (08:49)
[2017-03-15] MEDS ORDERED: DESFLURANE 1 UNIT/15 MINUTE INH ONE (08:49)
[2017-03-15] MEDS ORDERED: MIDAZOLAM 2 MG/2 ML VIAL ONE (08:50)
[2017-03-15] MEDS: LISINOPRIL 10 MG TABLET PO SCH (09:52)
[2017-03-15] MEDS: MULTIVITAMIN (CENTRUM) TABLET PO SCH (09:52)
[2017-03-15] MEDS: PANTOPRAZOLE 40 MG VIAL IV SCH (09:53)
[2017-03-15] MEDS: amLODIPine 5 MG TABLET PO SCH (09:53)
[2017-03-15] MEDS: HYDROmorphone 2 MG/1 ML VIAL IV PRN ×3 (09:55→20:47)
--- NOTE | 2017-03-15 09:59 | Hospitalist Progress Note ---
Assessment and Plan (1) Pancreatitis Status: Acute Assessment and plan: Patient has had multiple recurrent episodes associated with elevated triglyceride levels on several occasions. On this occasion ultrasound images been performed showing gallstones. Laparoscopic cholecystectomy completed March 15. Current Visit: Yes (2) Depression Status: Chronic Current Visit: No Qualifiers: Depression Type: reactive depression Qualified Code(s): F32.9 - Major depressive disorder, single episode, unspecified (3) Diabetes Status: Chronic Assessment and plan: Associated hypertriglyceridemia. Patient's home medication list did not include any treatment for diabetes mellitus. Persistent hypoglycemia swelling to the introduction of Humulin N. Current Visit: Yes (4) Hypertension Status: Chronic Assessment and plan: Persistent elevation of systolic and diastolic blood pressure during hospital stays led to the introduction of FRIDA inhibition. Current Visit: No Hospitalist: Subjective Interval history: 42-year-old male history of recurrent pancreatitis was admitted with increased terminal pain with evidence of inflammatory changes on CT scanning of the pancreas. On this occasion ultrasound of the gallbladder demonstrated gallstones without ductal dilatation or pericholic fluid. Patient's morning underwent uncomplicated laparoscopic cholecystectomy. He was of some concern due to prior abdominal surgical procedures (previous pancreatic cyst resection abdominal wall hernia with mesh implantation). During the hospital stay the patient showed persistent elevation of his capillary blood glucose which did not resolve with resolution of the pancreatitis. In addition he showed consistent systolic and diastolic hypertension as well. On March 14 the patient was initiated on lisinopril and placed on twice daily intermediate acting insulin. Would anticipate the patient would benefit from a dose augmentation of both of these drugs with long- term introduction of therapy for both hypertension and diabetes mellitus. Exam - Constitutional Vitals: Period Temp Pulse Resp BP Sys/Ingram Pulse Ox Last 24 Hr 96.9 F-98.7 F 75-100 15-20 126-169/81-111 94-100 General appearance: over weight - Respiratory Respiratory exam: Present: clear to auscultation bilaterally. Absent: rales, rhonchi, wheezes - Cardiovascular Cardiovascular exam: Present: regular rate and rhythm - GI/Abdominal GI/Abdominal exam: Present: other (Post laparoscopic cholecystectomy earlier this morning) - Extremities Exam Extremities exam: Absent: edema - Neurological Exam Neurological exam: Present: alert, oriented X3 Results - Labs CBC & BMP: 03/12/17 05:54 03/12/17 05:54 Specialty Discharge - Follow Up or Referrals Follow up with: Heri Juarez MD [Physician] - 2 Weeks
--- NOTE | 2017-03-15 10:17 | Anesthesia Post-Op ---
Anesthesia Post OP - Post Ansesthetic Evaluation Patient seen in post op: Yes Resp: within normal limits CV: within normal limits Mental: within normal limits Temp: within normal limits Peri-Nv-Ukniwpxne: within normal limits Nausea and Vomiting: within normal limits Pain: within normal limits
--- NOTE | 2017-03-15 15:27 | Fluoroscopy Report ---
[place] cholangiogram in surgery Clinical Information: Intraoperative fluoroscopy for cholecystectomy by Dr. Juarez. Total fluoroscopy time: 61 SEC Comparison: None available Findings: Contrast is noted to fill the intrahepatic bile ducts and common hepatic duct. There are no definite residual filling defects identified. Images were evaluated by the attending surgeon at the time of the procedure. Impression: Intraoperative fluoroscopy as detailed above. PROCEDURE INTERPRETED AT [facility] DEPARTMENT OF RADIOLOGY Final Report Signed by: Fredrick Oconnell
[2017-03-15] MEDS: oxyCODONE/ACETAMINOPHEN 5-325 MG TABLET PO PRN (17:19)
[2017-03-15] MEDS: NIACIN 500 MG TABLET PO SCH (20:45)
[2017-03-16] MEDS: oxyCODONE/ACETAMINOPHEN 5-325 MG TABLET PO PRN (07:45)
[2017-03-16] MEDS: SUCRALFATE 1 GM/10 ML UDCUP PO SCH ×2 (08:10→12:03)
[2017-03-16] MEDS: INSULIN LISPRO 100 UNIT/ML SUBCUT SCH ×2 (08:10→12:02)
[2017-03-16] MEDS: INSULIN NPH 100 UNIT/ML SUBCUT SCH (08:11)
[2017-03-16] MEDS: LISINOPRIL 10 MG TABLET PO SCH (08:12)
[2017-03-16] MEDS: MULTIVITAMIN (CENTRUM) TABLET PO SCH (08:12)
[2017-03-16] MEDS: amLODIPine 5 MG TABLET PO SCH (08:13)
[2017-03-16] MEDS: PANTOPRAZOLE 40 MG VIAL IV SCH (08:15)
[2017-03-16] MEDS: HYDROmorphone 2 MG/1 ML VIAL IV PRN (09:56)
--- NOTE | 2017-03-16 10:20 | Pathology Report from [facility] ---
ACCESSION # : [id number] PATIENT NAME : Dilshad Baxter ORDERING DR : Heri Juarez MD CLINICAL HX: Acute pancreatitis POST-OP DX: Same SPECIMEN INFO: Gallbladder GROSS DESCRIPTION: Received in formalin labeled "DILSHAD BAXTER" is a focally opened gallbladder measuring 10.6 x 3.4 cm. The serosa is fatty yellow elizondo with focal shaggy hemorrhagic areas. The gallbladder wall has a thickness of 0.1 cm. The mucosa is velvety gold elizondo. The lumen contains hyperemic yellow gold bile with an aggregate of black roughened stones present in the cystic duct measuring 1.6 x 2.5 cm. Skein Winding Operator sections are submitted in one cassette. DIAGNOSIS FOR DILSHAD BAXTER: GALLBLADDER, CHOLECYSTECTOMY: Acute and chronic cholecystitis; cholelithiasis. SERVICE DATE: 03/15/2017 REPORT DATE: 03/16/2017 PATHOLOGIST: Miller Veras M.D. [facility]
--- NOTE | 2017-03-16 10:22 | Event Note ---
General Surgery Progress Note Chief complaint This patient is a 42-year-old man admitted with recurrent pancreatitis and gallstones that was treated with laparoscopic cholecystectomy with normal intraoperative cholangiogram on 03/15/2017 Interval history No events overnight. The patient is eating well. No nausea. Pain is well controlled with p.o. medications. He is gotten up and walked around. Physical exam Afebrile, normal vital signs Abdominal exam is benign with expected postoperative tenderness. Incisions are clean and dry with no evidence of infection. Labs None new Imaging None new Assessment and plan The patient can be discharged home today. I have already arranged for follow- up in clinic in 2 weeks and put a pain prescription on the chart.
--- NOTE | 2017-03-16 14:40 | Discharge Summary ---
<Yahir Ivy - Last Filed: 03/16/17 14:35> Specialty Discharge - Follow Up or Referrals Follow up with: Heri Juarez MD [Physician] - 03/29/17 9:45 am Discharge Plan - Discharge Data Disposition: Disch To Home/Self Care Condition at Discharge: Stable Discharge Diet: heart healthy Activity: resume usual activities as tolerated Hygiene: no restrictions Weight Bearing at Discharge: full weight bearing Contact your physician if you experience:: fever over 101, Shortness of breath, Bleeding, pain uncontrolled by pain medications - Discharge Medications New Lisinopril [Prinivil] 10 mg PO DAILY #30 tablet Niacin [Vitamin B3] 500 mg PO BEDTIME #30 tablet amLODIPine [Norvasc] 5 mg PO DAILY #30 tablet Oxycodone HCl/Acetaminophen [Percocet 7.5-325 mg Tablet] 1 each PO Q6H PRN # 30 tablet PRN Reason: Pain Continue Glucosamine 500 mg PO DAILY Cyanocobalamin (Vitamin B-12) [Vitamin B12] 2,500 mcg PO DAILY Ascorbic Acid [Vitamin C] 1,000 mg PO DAILY Discontinued Naproxen [Naprosyn] 250 mg PO DAILY - Follow Up or Referral Follow Up: Heri Juarez MD [Physician] - 03/29/17 9:45 am - Forms/Instructions Instructions: Pancreatitis (DC), Laparoscopic Cholecystectomy (DC), Abuse of Alcohol (DC) Exam - Constitutional Vitals: Period Temp Pulse Resp BP Sys/Ingram Pulse Ox Last 24 Hr 97.3 F-98.5 F 78-95 18-20 139-162/88-98 92-96 General appearance: over weight - Head Head exam: Present: normocephalic, atraumatic - Eye Eye exam: Present: EOMI Pupils: Present: LAURA - ENT ENT exam: Present: normal exam - Neck Neck exam: Present: normal inspection - Cardiovascular Cardiovascular exam: Present: regular rate and rhythm - Extremities Exam Extremities exam: Present: full ROM - Back Exam Back exam: Present: normal inspection - Psychiatric Psychiatric exam: Present: normal affect, normal mood - Skin Skin exam: Present: normal color, warm, dry Discharge Results Procedures and tests throughout hospitalization: Pending Orders 03/15/17 09:58 Thiamin (Vitamin B1), WB Routine Labs on day of discharge: Labs from last 24 hours 03/16/17 03/16/1703/15/17 11:45 06:57 20:01 POC Glucose 307 H 168 H 259 H 03/15/17 16:00 POC Glucose 218 H DS: Provider Date of admission: 03/09/17 12:42 Primary care physician: . 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 cheatham is a 42-year-old male with past medical history of hypertension, diabetes, and chronic pancreatitis admitted by the hospitalist service on 2016 with acute pancreatitis. Patient had increased alcohol use along with elevated triglycerides. His pain did not significantly improve and he still had some nausea and vomiting. Abdominal ultrasound was obtained and he was found to have some gallstones as well. Dr. Juarez from surgery was consulted and recommended cholecystectomy. Patient was taken to the OR on 03/15/2017 for laparoscopic cholecystectomy. Patient was found to have acute and chronic cholecystitis. Cholangiogram revealed no filling defects in the bile duct and good filling of the intrahepatic radicles. Postoperatively patient is feeling well he is tolerating a diet and he is ready for discharge. He will be discharged home with a 1-2 week follow-up with Dr. Juarez. Care was coordinated with Dr. Juarez, Dr. Ivy, nursing and patient. Coordination of care along with chart review and discharge paperwork took approximately 33 minutes. - Time spent with patient Time with patient DS: Greater than 30 minutes Diagnosis - Discharge Diagnosis (1) Abdominal pain Status: Resolved (2) Acute pancreatitis Status: Resolved (3) Diabetes Status: Chronic (4) Hypertriglyceridemia Status: Chronic (5) Hypertension Status: Chronic (6) Alcohol abuse Status: Chronic DS: Provider Expected date of discharge: 03/16/17
[2017-03-16 16:15] VITALS: BP 148/83
== END 2017-03-16 17:00 | disposition home or self-care (01) | DRG 418 ==
LOC: N.ED 08:35 → SUATTDRO 12:42 → N.3E 12:42
PROVIDERS: ADMIT Pediatrics; ATTEND Internal Medicine Infectious Disease
PROC: LAPCHOL (2017-03-15 07:00)

== ENCOUNTER 2018-11-28 00:46 | Observation (INO) ==
[2018-11-28] MEDS ORDERED: ONDANSETRON 4 MG/2 ML VIAL IV STA (01:35)
[2018-11-28] MEDS ORDERED: SODIUM CHLORIDE 0.9% 1,000 ML IV STA (01:35)
[2018-11-28] MEDS ORDERED: MORPHINE 4 MG/1 ML VIAL IV STA (01:35)
[2018-11-28 02:13] LABS: Basophils # 0.1 10*3/uL (0.0-0.2); Basophils % 0.8 % (0.0-0.8); Hemoglobin 16.8 GM/DL (14.0-18.0); Mean Platelet Volume 10.4 FL (9.6-12.0)
[2018-11-28 02:17] LABS: Eosinophils # 0.2 10*3/uL (0.0-0.87); Eosinophils % 1.6 % (0.00-10.9); Immature Granulocytes % 0.5 %; Immature Granulocytes Absolute 0.06 #; Lymphocytes # 1.8 10*3/uL (1.4-4.0); Lymphocytes % 13.3 % (21.2-54.2); Mean Corpuscular HGB Conc 38.1 GM/DL (32-36); Mean Corpuscular Hemoglobin 35 PG (27-34); Mean Corpuscular Volume 92.3 FL (87-102); Monocytes # 0.9 10*3/uL (0.11-0.8); Monocytes % 6.8 % (1.7-12.7); Neutrophils # 10.1 10*3/uL (1.4-7.4); Platelet Count 200 T/CUMM (130-400); Red Blood Count 4.78 MC/CUMM (3.8-5.5); White Blood Count 13.2 T/CUMM (4-12)
[2018-11-28 02:20] LABS: Hematocrit 44.1 VOL% (42.0-52.0)
[2018-11-28] MEDS ORDERED: HYDROmorphone 2 MG/1 ML VIAL IV STA ×2 (02:58→04:23)
[2018-11-28 04:02] LABS: Apearance,Urine CLEAR (Clear); Bilirubin,Urine Negative (Negative); Blood, Urine Small mg/dL (Negative); Glucose,Urine (UA) >=500 mg/dL (Negative); Ketones,Urine 80 mg/dL (Negative); Mucus,Urine Occasional /LPF (Occasional); Nitrite,Urine Negative (Negative); Protein,Urine 100 MG/DL; RBC,Urine <1 /HPF (0-4); Urine Color Yellow (Yellow); Urine Specific Gravity 1.029 (1.001-1.035); Urine Urobilinogen < 2.0 EU/DL (0.2-1.0); WBC,Urine 1 /HPF (0-6)
[2018-11-28 04:12] LABS: Albumin 3.3 G/DL (3.4-5.0); Bilirubin,Total 0.9 MG/DL (0.2-1.0); Total Protein 8.2 G/DL (6.4-8.3)
[2018-11-28 04:13] LABS: Osmolality,Calculated 262.4 MOS/KG (273-304); Potassium 4.1 MMOL/L (3.5-5.1)
[2018-11-28] MEDS ORDERED: SODIUM CHLORIDE 0.9% 2,000 ML IV STA (04:23)
[2018-11-28] MEDS ORDERED: INSULIN REGULAR 100 UNIT/ML IV STA (05:01)
[2018-11-28] MEDS ORDERED: INSULIN REGULAR 100 UNIT/ML SUBCUT STA ×2 (05:24→05:30)
[2018-11-28] MEDS ORDERED: ZALEPLON 5 MG CAPSULE PO PRN (05:37)
[2018-11-28] MEDS ORDERED: PROMETHAZINE 25 MG/1 ML VIAL IM PRN (05:37)
[2018-11-28] MEDS ORDERED: DEXTROSE 50% 25 GM/50 ML SYRINGE IV PRN ×2 (05:40→09:43)
[2018-11-28] MEDS ORDERED: GLUCAGON 1 MG VIAL IM PRN ×2 (05:40→09:43)
[2018-11-28] MEDS ORDERED: INSULIN REGULAR 100 UNIT/ML SUBCUT SCH ×2 (06:00→08:00)
[2018-11-28 06:01] LABS: Barbiturates Screen,Urine Negative (Negative); Benzodiazepines Screen,Urine Negative (Negative); Cannabinoid Screen,Urine Positive (Negative); Opiate Screen,Urine Positive (Negative); Phencyclidine Screen,Urine Negative (Negative)
[2018-11-28] MEDS ORDERED: LORazepam 2 MG/1 ML VIAL IV PRN ×2 (06:16)
[2018-11-28 06:21] LABS: Calcium 8.9 MG/DL (8.5-10.1)
[2018-11-28 07:02] LABS: Risk Ratio 16.64; VLDL CHOLESTEROL 784.6 MG/DL
[2018-11-28] MEDS: SODIUM CHLORIDE 0.9% 1,000 ML IV SCH ×3 (07:26→21:20)
[2018-11-28 07:35] LABS: Calcium 7.1 MG/DL (8.5-10.1); Osmolality,Calculated 263.2 MOS/KG (273-304); Potassium 4.5 MMOL/L (3.5-5.1)
[2018-11-28] MEDS: ONDANSETRON 4 MG/2 ML VIAL IV PRN ×3 (07:35→21:14)
[2018-11-28] MEDS: HYDROmorphone 2 MG/1 ML VIAL IV PRN ×5 (08:26→21:15)
[2018-11-28] MEDS: NICOTINE 21 MG/24 HR PATCH TRANSDERM SCH (08:34)
[2018-11-28] MEDS: PANTOPRAZOLE 40 MG VIAL IV SCH (08:34)
[2018-11-28] MEDS: ENOXAPARIN 40 MG/0.4 ML SYRINGE SUBCUT SCH (08:34)
[2018-11-28] MEDS: INSULIN LISPRO 100 UNIT/ML SUBCUT SCH ×3 (12:41→21:15)
[2018-11-28] MEDS: INSULIN REGULAR 100 UNIT/ML SUBCUT SCH ×4 (12:41→23:48)
[2018-11-28 14:37] LABS: Calcium 7.1 MG/DL (8.5-10.1); Osmolality,Calculated 263.7 MOS/KG (273-304); Potassium 3.8 MMOL/L (3.5-5.1)
[2018-11-28] MEDS: GEMFIBROZIL 600 MG TABLET PO SCH (16:09)
[2018-11-28 20:03] LABS: Calcium 7.6 MG/DL (8.5-10.1); Osmolality,Calculated 262.5 MOS/KG (273-304); Potassium 3.6 MMOL/L (3.5-5.1)
[2018-11-28] MEDS: INSULIN GLARGINE 100 UNIT/ML SUBCUT SCH (21:14)
[2018-11-28] MEDS: ATORVASTATIN 20 MG TABLET PO SCH (21:14)
[2018-11-29] MEDS: HYDROmorphone 2 MG/1 ML VIAL IV PRN ×6 (01:02→21:44)
[2018-11-29 02:42] LABS: Basophils % 0.5 % (0.0-0.8); Eosinophils # 0.2 10*3/uL (0.0-0.87); Eosinophils % 2.5 % (0.00-10.9); Hematocrit 37.1 VOL% (42.0-52.0); Immature Granulocytes % 0.5 %; Immature Granulocytes Absolute 0.03 #; Lymphocytes # 1.3 10*3/uL (1.4-4.0); Lymphocytes % 20.6 % (21.2-54.2); Mean Corpuscular Hemoglobin 33 PG (27-34); Mean Corpuscular Volume 94.9 FL (87-102); Mean Platelet Volume 10.3 FL (9.6-12.0); Monocytes # 0.6 10*3/uL (0.11-0.8); Neutrophils % 65.9 % (38.7-73.9); Platelet Count 106 T/CUMM (130-400); Red Blood Count 3.91 MC/CUMM (3.8-5.5); Red Cell Distribution Width 12.2 % (9.3-17.3); White Blood Count 6.1 T/CUMM (4-12)
[2018-11-29 03:07] LABS: Calcium 7.7 MG/DL (8.5-10.1); Osmolality,Calculated 265.5 MOS/KG (273-304); Potassium 3.4 MMOL/L (3.5-5.1)
[2018-11-29 03:21] LABS: Albumin 2.8 G/DL (3.4-5.0); Bilirubin,Total 0.6 MG/DL (0.2-1.0); Calcium 7.7 MG/DL (8.5-10.1); Osmolality,Calculated 261.8 MOS/KG (273-304); Potassium 3.4 MMOL/L (3.5-5.1); Total Protein 6.8 G/DL (6.4-8.3)
[2018-11-29] MEDS: SODIUM CHLORIDE 0.9% 1,000 ML IV SCH ×5 (03:48→17:13)
[2018-11-29] MEDS: INSULIN REGULAR 100 UNIT/ML SUBCUT SCH ×5 (04:48→21:43)
[2018-11-29] MEDS: ONDANSETRON 4 MG/2 ML VIAL IV PRN ×2 (06:43→12:19)
[2018-11-29] MEDS: INSULIN LISPRO 100 UNIT/ML SUBCUT SCH ×4 (08:26→21:43)
[2018-11-29] MEDS: GEMFIBROZIL 600 MG TABLET PO SCH ×2 (08:27→17:14)
[2018-11-29] MEDS: POTASSIUM CHLORIDE 20 MEQ TABLET PO PRN ×3 (08:27→17:14)
[2018-11-29] MEDS: ENOXAPARIN 40 MG/0.4 ML SYRINGE SUBCUT SCH (08:28)
[2018-11-29] MEDS: NICOTINE 21 MG/24 HR PATCH TRANSDERM SCH (08:29)
[2018-11-29] MEDS: PANTOPRAZOLE 40 MG VIAL IV SCH (09:33)
[2018-11-29 13:01] LABS: Risk Ratio 14.3; VLDL CHOLESTEROL 320.6 MG/DL
[2018-11-29] MEDS ORDERED: HYDROmorphone 2 MG/1 ML VIAL IV PRN (15:17)
[2018-11-29] MEDS: INSULIN GLARGINE 100 UNIT/ML SUBCUT SCH (21:43)
[2018-11-29] MEDS: ATORVASTATIN 20 MG TABLET PO SCH (21:44)
[2018-11-30] MEDS: SODIUM CHLORIDE 0.9% 1,000 ML IV SCH ×3 (00:15→06:30)
[2018-11-30] MEDS: INSULIN REGULAR 100 UNIT/ML SUBCUT SCH ×3 (01:25→09:20)
[2018-11-30] MEDS: HYDROmorphone 2 MG/1 ML VIAL IV PRN ×2 (02:10→10:30)
[2018-11-30 05:13] LABS: Basophils % 1.1 % (0.0-0.8); Eosinophils # 0.1 10*3/uL (0.0-0.87); Eosinophils % 3.2 % (0.00-10.9); Hematocrit 38.3 VOL% (42.0-52.0); Immature Granulocytes % 1.3 %; Immature Granulocytes Absolute 0.05 #; Lymphocytes # 1.2 10*3/uL (1.4-4.0); Lymphocytes % 31.1 % (21.2-54.2); Mean Corpuscular HGB Conc 33.9 GM/DL (32-36); Mean Corpuscular Hemoglobin 33 PG (27-34); Mean Platelet Volume 10.4 FL (9.6-12.0); Monocytes # 0.6 10*3/uL (0.11-0.8); Monocytes % 14.5 % (1.7-12.7); Neutrophils # 1.9 10*3/uL (1.4-7.4); Neutrophils % 48.8 % (38.7-73.9); Platelet Count 121 T/CUMM (130-400); Red Blood Count 3.95 MC/CUMM (3.8-5.5); Red Cell Distribution Width 12.4 % (9.3-17.3); White Blood Count 3.8 T/CUMM (4-12)
[2018-11-30 05:29] LABS: Calcium 8.1 MG/DL (8.5-10.1); Potassium 3.5 MMOL/L (3.5-5.1)
[2018-11-30] MEDS: GEMFIBROZIL 600 MG TABLET PO SCH (09:18)
[2018-11-30] MEDS: INSULIN LISPRO 100 UNIT/ML SUBCUT SCH (09:19)
[2018-11-30] MEDS: PANTOPRAZOLE 40 MG VIAL IV SCH (09:20)
[2018-11-30] MEDS: ENOXAPARIN 40 MG/0.4 ML SYRINGE SUBCUT SCH (09:21)
[2018-11-30] MEDS: NICOTINE 21 MG/24 HR PATCH TRANSDERM SCH (09:21)
[2018-11-30 10:12] VITALS: BP 111/67
== END 2018-11-30 12:13 | disposition home or self-care (01) ==
LOC: N.ED 00:46 → N.EDINP 00:46 → N.TELES 06:04 → N.5E 17:56
PROVIDERS: ADMIT Emergency Medicine; ATTEND Emergency Medicine

== ENCOUNTER 2021-02-20 00:59 | Observation (INO) ==
[2021-02-20 01:51] LABS: Basophils # 0.1 10*3/uL (0.0-0.2); Basophils % 0.7 % (0.0-0.8); Eosinophils # 0.2 10*3/uL (0.0-0.87); Eosinophils % 2.1 % (0.00-10.9); Hematocrit 44.5 VOL% (42.0-52.0); Hemoglobin 15.9 GM/DL (14.0-18.0); Immature Granulocytes % 0.4 %; Immature Granulocytes Absolute 0.04 #; Lymphocytes # 3.9 10*3/uL (1.4-4.0); Lymphocytes % 35.6 % (21.2-54.2); Mean Corpuscular HGB Conc 35.7 GM/DL (32-36); Mean Platelet Volume 11.3 FL (9.6-12.0); Monocytes % 5.7 % (1.7-12.7); Neutrophils % 55.5 % (38.7-73.9); Platelet Count 113 T/CUMM (130-400); Red Cell Distribution Width 13.2 % (9.3-17.3); White Blood Count 11.1 T/CUMM (4-12)
[2021-02-20 02:09] LABS: Bilirubin,Urine Negative (Negative); Blood, Urine Negative (Negative); Glucose,Urine (UA) >=500 mg/dL (Negative); Ketones,Urine 5 mg/dL (Negative); Nitrite,Urine Negative (Negative); Protein,Urine Negative; RBC,Urine 1 /HPF (0-4); Urine Appearance CLEAR (Clear); Urine Color Straw (Yellow); Urine Specific Gravity 1.022 (1.001-1.035); Urine Urobilinogen < 2.0 EU/DL (0.2-1.0); WBC,Urine 1 /HPF (0-6)
[2021-02-20 02:13] LABS: Albumin 4.2 G/DL (3.4-5.0); Calcium 8.4 MG/DL (8.5-10.1); Osmolality,Calculated 270.9 MOS/KG (273-304); Potassium 3.9 MMOL/L (3.5-5.1); Total Protein 7.8 G/DL (6.4-8.2)
[2021-02-20] MEDS ORDERED: THIAMINE INJ 100 MG, FOLIC ACID INJ 1 MG, MAGNESIUM SULF INJ 2 GM, MULTIVITAMIN INJ 10 ... IV ONE (02:15)
[2021-02-20 02:23] LABS: Barbiturates Screen,Urine Negative (Negative); Benzodiazepines Screen,Urine Negative (Negative); Cannabinoid Screen,Urine Negative (Negative); Opiate Screen,Urine Negative (Negative); Phencyclidine Screen,Urine Negative (Negative)
[2021-02-20] MEDS ORDERED: INSULIN REGULAR 100 UNIT/ML IV STA (02:30)
[2021-02-20 02:49] LABS: Eosinophils 2 % (0-10); Lymphocytes 37 % (20-55); Segmented Neutrophils 58 % (50-85); Total Cells Counted 100
[2021-02-20 02:50] LABS: Platelet Estimate Decreased
[2021-02-20 03:04] LABS: ABG Base Excess -4.4 MMOL/L (-2.5-2.5); ABG HCO3 20.3 MMOL/L (20-26); ABG Oxygen Saturation 94.6 % (95-100); ABG PCO2 36.9 MM HG (35-48); ABG PH 7.359 (7.35-7.45); ABG TCO2 21.5 MMOL/L (23-27)
[2021-02-20] MEDS ORDERED: ONDANSETRON 4 MG/2 ML VIAL IV PRN (05:07)
[2021-02-20] MEDS ORDERED: GLUCAGON 1 MG VIAL IM PRN ×2 (05:07)
[2021-02-20] MEDS ORDERED: DEXTROSE 50% 25 GM/50 ML VIAL IV PRN ×2 (05:07)
[2021-02-20] MEDS: INSULIN REGULAR 100 UNIT/ML SUBCUT SCH ×3 (07:40→17:31)
[2021-02-20] MEDS ORDERED: MULTIVITAMIN (CENTRUM) TABLET PO SCH (09:00)
[2021-02-20] MEDS ORDERED: FOLIC ACID 1 MG TABLET PO SCH (09:00)
[2021-02-20] MEDS: THIAMINE 100 MG TABLET PO SCH (09:44)
[2021-02-20] MEDS: PANTOPRAZOLE 40 MG TABLET PO SCH (09:44)
[2021-02-20] MEDS: ENOXAPARIN 40 MG/0.4 ML SYRINGE SUBCUT SCH (09:44)
[2021-02-20 10:12] LABS: Calcium 8.5 MG/DL (8.5-10.1); Osmolality,Calculated 269.9 MOS/KG (273-304)
[2021-02-20] MEDS: SODIUM CHLORIDE 0.9% 1,000 ML IV SCH (15:42)
[2021-02-20] MEDS: LORazepam 2 MG/1 ML VIAL IV PRN ×2 (15:52→21:50)
[2021-02-20] MEDS ORDERED: INSULIN GLARGINE 100 UNIT/ML SUBCUT SCH (21:00)
[2021-02-21] MEDS: INSULIN REGULAR 100 UNIT/ML SUBCUT SCH ×3 (00:01→12:03)
[2021-02-21] MEDS: SODIUM CHLORIDE 0.9% 1,000 ML IV SCH ×2 (01:41→08:00)
[2021-02-21] MEDS: ENOXAPARIN 40 MG/0.4 ML SYRINGE SUBCUT SCH (05:40)
[2021-02-21 06:44] LABS: Basophils % 0.7 % (0.0-0.8); Eosinophils # 0.2 10*3/uL (0.0-0.87); Eosinophils % 3.6 % (0.00-10.9); Hematocrit 36.7 VOL% (42.0-52.0); Hemoglobin 12.9 GM/DL (14.0-18.0); Immature Granulocytes % 0.2 %; Immature Granulocytes Absolute 0.01 #; Lymphocytes # 1.7 10*3/uL (1.4-4.0); Lymphocytes % 31.8 % (21.2-54.2); Mean Corpuscular HGB Conc 35.1 GM/DL (32-36); Mean Corpuscular Volume 91.5 FL (87-102); Mean Platelet Volume 10.3 FL (9.6-12.0); Monocytes % 6.8 % (1.7-12.7); Neutrophils % 56.9 % (38.7-73.9); Platelet Count 157 T/CUMM (130-400); Red Blood Count 4.01 MC/CUMM (3.8-5.5); Red Cell Distribution Width 13.1 % (9.3-17.3); White Blood Count 5.5 T/CUMM (4-12)
[2021-02-21 07:15] LABS: Albumin 3.3 G/DL (3.4-5.0); Osmolality,Calculated 277.1 MOS/KG (273-304); Potassium 3.7 MMOL/L (3.5-5.1); Total Protein 6.3 G/DL (6.4-8.2)
[2021-02-21 07:33] LABS: Eosinophils 5 % (0-10); Lymphocytes 27 % (20-55); Platelet Estimate Adequate; Segmented Neutrophils 64 % (50-85); Total Cells Counted 100
[2021-02-21 07:34] LABS: Hypochromasia Slight; Microcytosis Slight
[2021-02-21] MEDS ORDERED: FOLIC ACID 1 MG TABLET PO SCH (09:00)
[2021-02-21] MEDS ORDERED: amLODIPine 5 MG TABLET PO SCH (09:00)
[2021-02-21] MEDS ORDERED: MULTIVITAMIN (CENTRUM) TABLET PO SCH (09:00)
[2021-02-21] MEDS ORDERED: lisinopriL 20 MG TABLET PO SCH (09:00)
[2021-02-21] MEDS: PANTOPRAZOLE 40 MG TABLET PO SCH (09:30)
[2021-02-21] MEDS: THIAMINE 100 MG TABLET PO SCH (09:30)
[2021-02-21] MEDS: LORazepam 2 MG/1 ML VIAL IV PRN ×3 (09:31→15:35)
[2021-02-21] MEDS ORDERED: DULoxetine 30 MG CAPSULE PO SCH (10:30)
[2021-02-21 16:28] VITALS: BP 126/79
[2021-02-21] MEDS ORDERED: ATORVASTATIN 20 MG TABLET PO SCH (21:00)
[2021-02-21] MEDS ORDERED: QUEtiapine 100 MG TABLET PO SCH (21:00)
[2021-02-21] MEDS ORDERED: busPIRone 10 MG TABLET PO SCH (21:00)
== END 2021-02-21 16:39 ==
LOC: N.ED 00:59 → N.EDINP 00:59 → N.3E 07:29
PROVIDERS: ADMIT Internal Medicine; ATTEND Internal Medicine

== ENCOUNTER 2021-09-22 19:47 | Observation (INO) ==
[2021-09-22] MEDS ORDERED: THIAMINE INJ 100 MG, FOLIC ACID INJ 1 MG, MAGNESIUM SULF INJ 2 GM, MULTIVITAMIN INJ 10 ... IV STA (19:59)
[2021-09-22] MEDS ORDERED: SODIUM CHLORIDE 0.9% 1,000 ML IV STA (19:59)
[2021-09-22 21:01] LABS: Basophils % 0.6 % (0.0-0.8); Eosinophils # 0.1 10*3/uL (0.0-0.87); Eosinophils % 0.9 % (0.00-10.9); Hematocrit 43.6 VOL% (42.0-52.0); Hemoglobin 13.9 GM/DL (14.0-18.0); Immature Granulocytes % 0.9 %; Immature Granulocytes Absolute 0.06 #; Lymphocytes # 1.3 10*3/uL (1.4-4.0); Mean Corpuscular HGB Conc 31.9 GM/DL (32-36); Mean Corpuscular Volume 94.8 FL (87-102); Mean Platelet Volume 9.4 FL (9.6-12.0); Monocytes % 5.9 % (1.7-12.7); Neutrophils % 72.7 % (38.7-73.9); Platelet Count 191 T/CUMM (130-400); Red Cell Distribution Width 14.4 % (9.3-17.3); White Blood Count 6.9 T/CUMM (4-12)
[2021-09-22 21:23] LABS: Alanine Aminotransferase 33 U/L (16-61); Albumin 3.7 G/DL (3.4-5.0); Alkaline Phosphatase 69 U/L (45-117); Aspartate Amino Transferase 32 U/L (0-37); Bilirubin,Total < 0.39 MG/DL (0.20-1.00); Blood Urea Nitrogen 7 MG/DL (7-18); Calcium 8.2 MG/DL (8.5-10.1); Carbon Dioxide 25 MMOL/L (21-32); Estimated Glom Filtration Rate 138 ML/MIN; Glucose 121 MG/DL (74-106); Osmolality,Calculated 279.3 MOS/KG (273-304); Potassium 4.2 MMOL/L (3.5-5.1); Sodium 141 MMOL/L (136-145); Total Protein 7.3 G/DL (6.4-8.2)
[2021-09-22 21:41] LABS: Barbiturates Screen,Urine Negative (Negative); Benzodiazepines Screen,Urine Positive (Negative); Cannabinoid Screen,Urine Negative (Negative); Opiate Screen,Urine Negative (Negative); Phencyclidine Screen,Urine Negative (Negative)
[2021-09-23] MEDS ORDERED: hydrALAZINE 20 MG/1 ML VIAL IV PRN (00:05)
[2021-09-23] MEDS ORDERED: ACETAMINOPHEN 325 MG TABLET PO PRN (00:05)
[2021-09-23] MEDS ORDERED: GLUCAGON 1 MG VIAL IM PRN ×2 (00:05→09:56)
[2021-09-23] MEDS ORDERED: NICOTINE 21 MG/24 HR PATCH TRANSDERM PRN (00:05)
[2021-09-23] MEDS ORDERED: DEXTROSE 50% 25 GM/50 ML VIAL IV PRN ×2 (00:05→09:55)
[2021-09-23] MEDS ORDERED: ZALEPLON 5 MG CAPSULE PO PRN (00:05)
[2021-09-23] MEDS ORDERED: guaiFENesin/DM ER 600-30 MG TABLET PO PRN (00:05)
[2021-09-23] MEDS ORDERED: diphenhydrAMINE CAP 25 MG CAPSULE PO PRN (00:05)
[2021-09-23] MEDS ORDERED: INFLUENZA VIRUS VACCINE 0.5 ML SYRINGE IM ONE (05:21)
[2021-09-23 06:27] LABS: Basophils # 0.1 10*3/uL (0.0-0.2); Basophils % 0.7 % (0.0-0.8); Eosinophils # 0.1 10*3/uL (0.0-0.87); Eosinophils % 1.5 % (0.00-10.9); Hematocrit 44.3 VOL% (42.0-52.0); Hemoglobin 14.1 GM/DL (14.0-18.0); Immature Granulocytes % 0.6 %; Immature Granulocytes Absolute 0.04 #; Lymphocytes # 2.2 10*3/uL (1.4-4.0); Lymphocytes % 30.1 % (21.2-54.2); Mean Corpuscular HGB Conc 31.8 GM/DL (32-36); Mean Corpuscular Volume 95.1 FL (87-102); Mean Platelet Volume 9.4 FL (9.6-12.0); Neutrophils % 58.1 % (38.7-73.9); Platelet Count 185 T/CUMM (130-400); Red Blood Count 4.66 MC/CUMM (3.8-5.5); Red Cell Distribution Width 14.2 % (9.3-17.3); White Blood Count 7.2 T/CUMM (4-12)
[2021-09-23 06:50] LABS: Calcium 8.3 MG/DL (8.5-10.1); Potassium 4.2 MMOL/L (3.5-5.1)
[2021-09-23] MEDS: MULTIVITAMIN (CENTRUM) TABLET PO SCH (08:21)
[2021-09-23] MEDS: FOLIC ACID 1 MG TABLET PO SCH (08:21)
[2021-09-23] MEDS: HEPARIN 5,000 UNIT/1 ML VIAL SUBCUT SCH ×2 (08:22→22:53)
[2021-09-23] MEDS ORDERED: THIAMINE 200 MG/2 ML VIAL IV SCH (09:00)
[2021-09-23] MEDS: INSULIN LISPRO 100 UNIT/ML SUBCUT SCH ×3 (11:51→22:53)
[2021-09-23] MEDS ORDERED: THIAMINE INJ 100 MG, FOLIC ACID INJ 1 MG, MAGNESIUM SULF INJ 2 GM, MULTIVITAMIN INJ 10 ... IV SCH (18:00)
[2021-09-24 08:08] VITALS: BP 148/84
[2021-09-24] MEDS: INSULIN LISPRO 100 UNIT/ML SUBCUT SCH ×2 (08:51→12:50)
[2021-09-24] MEDS: MULTIVITAMIN (CENTRUM) TABLET PO SCH (09:14)
[2021-09-24] MEDS: HEPARIN 5,000 UNIT/1 ML VIAL SUBCUT SCH (09:14)
[2021-09-24] MEDS: FOLIC ACID 1 MG TABLET PO SCH (09:14)
[2021-09-24] MEDS ORDERED: INFLUENZA VIRUS VACCINE 0.5 ML SYRINGE IM ONE (11:02)
== END 2021-09-24 13:30 | disposition home or self-care (01) ==
LOC: EDBD → EDUNIT# → N.ED 19:47 → N.EDINP 19:47 → SUATTDRO 09-23 00:05 → N.3E 09-23 04:24
PROVIDERS: ADMIT Internal Medicine; ATTEND Internal Medicine